=== PATIENT | male | born 1960 | race American Indian/Alaskan Native ===

== ENCOUNTER 2017-07-01 15:50 | Emergency (ER) | payer BC, MEDICARE ==
[2017-07-01 15:56] VITALS: TEMP 98.3; BMI 28.5
[2017-07-01] MEDS ORDERED: Sodium Chloride 0.9% 1,000 ML IV STA (16:36)
--- NOTE | 2017-07-01 16:36 | ED PDOC ---
Arrival/HPI - General Chief Complaint: Weakness/Neurological Deficit Time Seen by Provider: 07/01/17 16:13 Historian: Patient - History of Present Illness Narrative History of Present Illness (Text): 07/01/17 16:31 56yo male with PMHx of MS manoj for complaint of generalized weakness and right hip pain. He is s/p right hip replacement in January. States he still have the same pain from before the surgery on the hip. He started having the pain today and felt weak. States the pain usually makes him weak. States he fell when the pain started. Pain is with ambulation. He denies focal weakness, back pain, abdominal pain, fever, chills, any other complaint. Past Medical History - Provider Review Nursing Documentation Reviewed: Yes - Infectious Disease Hx of Infectious Diseases: None - Tetanus Immunization Tetanus Immunization: Unknown - Cardiac Hx Cardiac Disorders: No - Pulmonary Hx Respiratory Disorders: No - Neurological Hx Neurological Disorder: Yes Hx Multiple Sclerosis: Yes - HEENT Hx HEENT Disorder: No - Renal Hx Renal Disorder: No - Endocrine/Metabolic Hx Endocrine Disorders: No - Hematological/Oncological Hx Blood Disorders: No - Integumentary Hx Dermatological Disorder: No - Musculoskeletal/Rheumatological Hx Musculoskeletal Disorders: Yes Other/Comment: R HIP PAIN. USES WALKER. - Gastrointestinal Hx Gastrointestinal Disorders: No - Genitourinary/Gynecological Hx Genitourinary Disorders: Yes Other/Comment: BLADDER PROBLEM. - Psychiatric Hx Psychophysiologic Disorder: No Hx Substance Use: No - Past Surgical History Past Surgical History: No Previous - Surgical History Hx Orthopedic Surgery: Yes (R HIP) - Suicidal Assessment Feels Threatened In Home Enviroment: No Family/Social History - Physician Review Nursing Documentation Reviewed: Yes Family/Social History: Unknown Family HX Smoking Status: Never Smoked Hx Alcohol Use: No Hx Substance Use: No Allergies/Home Meds Allergies/Adverse Reactions: Allergies No Known Allergies Allergy (Verified 07/01/17 16:08) Review of Systems - Physician Review All systems were reviewed & negative as marked: Yes - Review of Systems Constitutional: Fatigue Eyes: Normal ENT: Normal Respiratory: Normal Cardiovascular: Normal Gastrointestinal: Normal Genitourinary Male: Normal Musculoskeletal: Arthralgias (right hip) Skin: Normal Neurological: Normal Endocrine: Normal Hemo/Lymphatic: Normal Psychiatric: Normal Physical Exam Vital Signs Reviewed: Yes Vital Signs Temp Pulse Resp BP Pulse Ox 07/01/17 18:15 77 16 121/73 99 07/01/17 17:02 75 18 122/86 98 07/01/17 15:55 98.3 F 77 18 124/94 H 98 Temperature: Afebrile Blood Pressure: Normal Pulse: Regular Respiratory Rate: Normal Appearance: Positive for: Well-Appearing, Non-Toxic, Comfortable Pain Distress: None Mental Status: Positive for: Alert and Oriented X 3 - Systems Exam Head: Present: Atraumatic, Normocephalic Pupils: Present: PERRL Extroacular Muscles: Present: EOMI Conjunctiva: Present: Normal Mouth: Present: Moist Mucous Membranes Neck: Present: Normal Range of Motion Respiratory/Chest: Present: Clear to Auscultation, Good Air Exchange. No: Respiratory Distress, Accessory Muscle Use Cardiovascular: Present: Regular Rate and Rhythm, Normal S1, S2. No: Murmurs Abdomen: Present: Normal Bowel Sounds. No: Tenderness, Distention, Peritoneal Signs Back: Present: Normal Inspection Upper Extremity: Present: Normal Inspection. No: Cyanosis, Edema Lower Extremity: Present: NORMAL PULSES, Normal ROM (With pain on internal/ external adductionabduction of right hip), Neurovascularly Intact. No: Edema, Tenderness, Swelling Neurological: Present: GCS=15, CN II-XII Intact, Speech Normal, Motor Func Grossly Intact Skin: Present: Warm, Dry, Normal Color. No: Rashes Psychiatric: Present: Alert, Oriented x 3, Normal Insight, Normal Concentration Medical Decision Making ED Course and Treatment: 07/01/17 18:44 Pt was hemodynamcially stable in ED. He was hydrated and Toradol was given for pain. On re evaluation he notes that his pain improved. His lab was unremarkable Hip xray - No acute fracture/dislocation. Result was DW the pt. He will be DC home with a rx of Naprosyn. Advised to f/u with his PMD. TRT ED for any new or worsening symptoms. - Lab Interpretations Lab Results: 07/01/17 16:50 07/01/17 16:50 Lab Results 07/01/17 16:50: Sodium 142, Potassium 4.4, Chloride 103, Carbon Dioxide 30, Anion Gap 13, BUN 13, Creatinine 1.0, Est GFR ( Amer) > 60, Est GFR (Non- Af Amer) > 60, Random Glucose 88, Calcium 9.7, Total Bilirubin 0.8, AST 31, ALT 36, Alkaline Phosphatase 95, Total Protein 8.1, Albumin 4.5, Globulin 3.6, Albumin/Globulin Ratio 1.3 07/01/17 16:50: WBC 8.0, RBC 5.51, Hgb 14.5, Hct 42.8, MCV 77.7 L, MCH 26.3, MCHC 33.9, RDW 14.6 H, Plt Count 171, MPV 9.6, Gran % 83.1 H, Lymph % (Auto) 10.4 L, [place] % (Auto) 5.1, Eos % (Auto) 1.3 L, Baso % (Auto) 0.1, Gran # 6.62 H , Lymph # 0.8 L, [place] # 0.4, Eos # 0.1, Baso # 0.01 - RAD Interpretation Radiology Orders: 07/01/17 16:29 Hip Bilateral [HIP MIN 3V W/ PELVIS LOI] [RAD] Stat - Medication Orders Current Medication Orders: Discontinued Medications Sodium Chloride (Sodium Chloride 0.9%) 1,000 mls @ 999 mls/hr IV .Q1H1M STA Stop: 07/01/17 17:36 Last Admin: 07/01/17 16:48 Dose: 999 mls/hr eMAR Start Stop Document 07/01/17 16:48 HYUN (Rec: 07/01/17 16:49 HYUN [id number]) Intravenous Solution Start Date 07/01/17 Start Time 16:48 End Date 07/01/17 End time 17:48 Total Infusion Time 60 Ketorolac Tromethamine (Toradol) 30 mg IVP STAT STA Stop: 07/01/17 16:37 Last Admin: 07/01/17 16:48 Dose: 30 mg MAR Pain Assessment Document 07/01/17 16:48 HYUN (Rec: 07/01/17 16:48 HUYN [id number]) Pain Reassessment Is this a pain reassessment? Yes Presence of Pain Presence of Pain Yes Pain Scale Used Pain Scale Used Numeric Location Left, Right or Bilateral Right Pain Location Body Site Hip Description Description Chronic Intensity of Pain at present 3 IVP Administration Document 07/01/17 16:48 HYUN (Rec: 07/01/17 16:48 HYUN [id number]) Charges for Administration # of IVP Administrations 1 Disposition/Present on Arrival - Present on Arrival Any Indicators Present on Arrival: No History of DVT/PE: No History of Uncontrolled Diabetes: No Urinary Catheter: No History of Decub. Ulcer: No History Surgical Site Infection Following: None - Disposition Have Diagnosis and Disposition been Completed?: Yes Diagnosis: Hip pain, Weakness Disposition: HOME/ ROUTINE Disposition Time: 18:45 Patient Plan: Discharge Condition: STABLE Discharge Instructions (ExitCare): Weakness (ED) Additional Instructions: Take medication as directed Follow up with your doctor Return to ED for any new or worsening symptoms Prescriptions: Naproxen [Naprosyn] 500 mg PO BID #20 tablet Referrals: [facility] [place] - Follow up with primary Forms: [email or web address] ([place])
[2017-07-01 17:10] LABS: BASO # 0.01 K/mm3 (0.0-2.0); BASO % 0.1 % (0.0-3.0); EOS # 0.1 (0.0-0.7); EOS % 1.3 % (1.5-5.0); GRAN # 6.62 (1.4-6.5); GRAN % 83.1 % (50.0-68.0); HEMATOCRIT 42.8 % (42.0-52.0); LYMPH # 0.8 (1.2-3.4); LYMPH % 10.4 % (22.0-35.0); MEAN CELL VOLUME 77.7 fl (80.0-105.0); MEAN CORPUSCULAR HEMOGLOBIN 26.3 pg (25.0-35.0); MEAN CORPUSCULAR HGB CONC 33.9 g/dl (31.0-37.0); MEAN PLATELET VOLUME 9.6 fl (7.0-11.0); MONO # 0.4 (0.1-0.6); MONO % 5.1 % (1.0-6.0); RED CELL DISTRIBUTION WIDTH 14.6 % (11.5-14.5)
[2017-07-01 17:31] LABS: ALB/GLOB RATIO 1.3 (1.1-1.8); ALKALINE PHOSPHATASE 95 U/L (38-126); ALT/SGPT 36 U/L (7-56); AST/SGOT 31 U/L (17-59); BILIRUBIN,TOTAL 0.8 mg/dL (0.2-1.3); BLOOD UREA NITROGEN 13 mg/dL (7-21); CALCIUM 9.7 mg/dL (8.4-10.5); CARBON DIOXIDE 30 mmol/L (21-33); CHLORIDE 103 mmol/L (98-107); GFR AFRICAN-AMERICAN > 60; GLUCOSE,RANDOM 88 mg/dL (70-110); POTASSIUM 4.4 mmol/L (3.6-5.0); SODIUM 142 mmol/L (132-148); TOTAL PROTEIN 8.1 g/dL (5.8-8.3)
[2017-07-01 19:13] VITALS: BP 121/73; PULSE 77; RESP 16; O2SAT 99
--- NOTE | 2017-07-02 08:04 | RAD ---
PROCEDURE: Radiographs of the pelvis and bilateral hips HISTORY: right hip pain COMPARISON: 12/14/2015 FINDINGS: BONES: Pelvis: Unremarkable. Right hip:There has been a right hip replacement. There is a moderate amount of heterotopic bone superior to the neck of the prosthesis and adjacent to the lesser trochanter. Left hip:Unremarkable. JOINTS: Right hip: As above Left hip: Unremarkable. Sacroiliac Joints: Unremarkable. Pubic symphysis: Unremarkable. SOFT TISSUES: Normal. OTHER FINDINGS: None. IMPRESSION: There has been a right hip replacement. There is a moderate amount of heterotopic bone superior to the neck of the prosthesis and adjacent to the lesser trochanter.
== END 2017-07-01 19:13 | disposition home or self-care (01) ==
LOC: ED 15:50
DX: M25.551 Pain in right hip (principal); R53.1 Weakness; G35 Multiple sclerosis; Z96.641 Presence of right artificial hip joint
CPT/HCPCS: 73522; 80053; 85025; 96361; 96374; 99283; J1885; J7040